=== PATIENT | female | born 2000 | race Caucasian/White ===

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

== ENCOUNTER 2019-01-27 05:48 | Emergency (ER) | payer MEDICAID ==
[2019-01-27] MEDS: IBUPROFEN 800 MG TAB PO (06:21)
== END 2019-01-27 06:58 | disposition home or self-care (01) ==
LOC: FTE 05:48
DX: M54.5 Low back pain (principal)
CPT/HCPCS: 72072; 99283-25